=== PATIENT | female | born 1955 | race African-American/Black ===

== ENCOUNTER → 2016-08-11 | Outpatient (CLI) | payer OTHER ==
[~2016-08-11] MED LIST: ALBUTEROL17 GM INH; BREO ELLIPTA 21 EACH; CALAN PO; DESYREL100 MG PO; ESCITALOPRAM OX10 MG PO; FLEXERIL10 MG PO; HYDRALAZINE HC100 MG PO; MAG-OXIDE400 MG PO; NEURONTIN300 MG PO; NORCO 7.5-3251 EACH PO; NORVASC10 MG PO; OMEPRAZOLE20 M1 PO
--- NOTE | ~2016-08-11 | US6 ---
[facility] A Service of [facility] & [facility] RADIOLOGY TEXT RESULTS PATIENT: OCTAVIO STAHL LOCATION: [facility] : 53 UNIT #: [id number] AGE: [address]: AISSATOU SALEH APRN SEX: F ORDER DR: [id number] [facility] [address] [place], [place] [address] [id number] O MR#: [id number] Acc #: [id number] NAME: OCTAVIO STAHL : 1955 SEX: F STUDY DATE/TIME: 08/11/2016 11:34 UNIT: [facility] ROOM: STUDY DESCRIPTION: US Abdominal Limited Attending Physician: Aissatou Saleh A.P.R.N. Referring Physician: Aissatou Saleh A.P.R.N. Ordering Physician: Aissatou Saleh A.P.R.N. Primary Care Physician: Primary Care Physician No MEDICAL IMAGING REPORT This report is preliminary unless electronic signature is present EXAM Right upper quadrant ultrasound, 08/11 HISTORY Hepatitis C diagnosed about 1 month ago. FINDINGS Sonographic evaluation is performed of the right upper quadrant in multiple planes. No comparison. There is either a hypoechoic nodule within the head of the pancreas or there is periportal adenopathy. Lesion measures about 2.1 x 1.1 x 1.8 cm. Follow-up with a contrast enhanced CT is recommended. No focal liver masses are seen. The main portal vein is patent by Doppler. The right kidney is morphologically normal and nonobstructed. There is a cyst in the right lobe of the liver. This measures about 1.4 cm. It is also present on a chest CTA from 03/18/2014. No gallstones are identified. There is no gallbladder wall thickening. The common duct is normal at 4.0 mm internal diameter. There is no free fluid. IMPRESSION 1. Mass in the head of the pancreas versus an enlarged periportal lymph node. Follow-up with a contrast enhanced CT is recommended. 2. There is a small hepatic cyst. Liver otherwise is grossly normal. 3. Normal gallbladder. No biliary obstruction. Dictated by... Frank Lamas Jr. MAmanda. THIS IS AN ELECTRONICALLY VERIFIED REPORT Frank Lamas Jr., M.D. at 08/11/2016 5:01 PM GEORGE/tobi [facility]. [facility] A Service of [facility] & [facility] RADIOLOGY TEXT RESULTS PATIENT: OCTAVIO STAHL LOCATION: [facility] #: [id number] : 53 UNIT #: [id number] AGE: [address]: AISSATOU SALEH APRN SEX: F ORDER DR: TD: 08/11/2016 15:11 JOB #: [id number] MEDICAL IMAGING REPORT Page 1 of 1 COPY
[2016-08-11 11:19] LABS: HEMOGLOBIN 10.9 gm/dL (12.0-16.0); MEAN CELL VOLUME 79.2 FL (83-96); MEAN CORPUSCULAR HEMOGLOBIN 24.7 PG (28-34); MEAN CORPUSCULAR HGB CONC 31.2 g/dL (30-36); MEAN PLATELET VOLUME 9.4 FL (6.5-11.5); RED BLOOD COUNT 4.42 X10e (3.90-5.30); RED CELL DISTRIBUTION WIDTH 15.2 % (11.0-15.5); WHITE BLOOD COUNT 11.4 X10e3 (4.0-10.5)
[2016-08-11 11:44] LABS: AMPHETAMINE NEG (NEG); BARBITURATES NEG (NEG); BENZODIAZEPINES NEG (NEG); COCAINE NEG (NEG); MARIJUANA NEG (NEG); OPIATES POS (NEG); TRICYCLIC ANTIDEPRESSANTS POS (NEG); U METHADONE NEG (NEG)
[2016-08-11 11:47] LABS: ALBUMIN SERUM 3.6 g/dL (3.5-5.0); BILIRUBIN,TOTAL 0.1 mg/dL (0.2-2.0); BUN/CREATININE RATIO 22.5; CALCIUM SERUM 8.7 mg/dL (8.4-10.2); CREATININE SERUM 1.2 mg/dL (0.6-1.4); GLOM FILT RATE Estimated 56.1 mL/min (>60); PROTEIN TOTAL SERUM 7.5 g/dL (6.0-8.3)
[2016-08-16 10:32] LABS: HA AB IGM (HEPPAN) Nonreactive (()); HB CORE AB IGM (HEPPAN) Nonreactive (Nonreactive); HB S AG (HEPPAN) Nonreactive (Nonreactive); HEP C AB (HEPPAN) Reactive (Nonreactive)
== END | disposition home or self-care (01) ==
LOC: CLAB 10:10 → CGUS 10:10
PROVIDERS: Nurse Practitioner Family
DX: B19.20 Unspecified viral hepatitis C without hepatic coma (principal); K76.89 Other specified diseases of liver
CPT/HCPCS: 36415; 76705; 80053; 80074; 80307; 82172; 82247; 82977; 83010; 83883; 84460; 85027; 87522; 87902

== ENCOUNTER → 2016-10-08 | Day surgery (SDC) | payer OTHER ==
--- NOTE | ~2016-10-08 | OR ---
Unit #: [id number] #: [id number] Patient: OCTAVIO STAHL [id number] [address] [address] [id number] O MR#: [id number] NAME: OCTAVOI STAHL ROOM: Date of Procedure: 10/08/2016 Admission Date: 10/08/2016 Surgeon: Carroll Nunez M.D. : 1955 Attending Physician: Carroll Nunez M.D. Primary Care Physician: Eri Corado M.D. OPERATIVE REPORT PROCEDURE PERFORMED Colonoscopy with snare polypectomy. INDICATIONS FOR PROCEDURE A 61-year-old female with average risk for colorectal cancer. MEDICATIONS Monitored anesthesia. POSTOPERATIVE FINDINGS 1. Colonoscopy completed to cecum. Multiples polyps were seen, 5 polyps in ascending colon, 4 to 6 mm each, snared and sent for histopathology. 2. Polyp, traverse colon, 1 cm, snared and sent for histopathology. 3. Polyp, traverse colon, 5 mm, snared and sent for histopathology. PLAN Repeat colonoscopy in 3 years. DESCRIPTION OF PROCEDURE The patient was explained of the procedure, risks, and benefits along with risks and benefits of anesthesia. She was brought to the endoscopy room. Propofol anesthesia was given. Rectal exam was done, which was normal. Colonoscope was lubricated, passed up the rectum, advanced under direct vision all the way to the cecum. Cecum was identified by ileocecal valve and appendiceal orifice. Polyps have been described above. I retroflexed in the rectum, small hemorrhoids seen. The scope was gently pulled out. She tolerated it well. No major complications seen. Dictated by... Savi Palacios/jorje TD: 10/09/2016 01:25 JOB #: [id number] Unit #: [id number] #: [id number] Patient: OCTAVIO STAHL OPERATIVE REPORT Page 1 of 1 X Carroll Nunez MD PROCEDURE OPERATIVE NOTE
== END | disposition home or self-care (01) ==
LOC: COPS 08:37
DX: Z12.11 Encounter for screening for malignant neoplasm of colon (principal); D12.2 Benign neoplasm of ascending colon; D12.3 Benign neoplasm of transverse colon; K64.9 Unspecified hemorrhoids; F41.9 Anxiety disorder, unspecified; K21.9 Gastro-esophageal reflux disease without esophagitis; M19.90 Unspecified osteoarthritis, unspecified site; I10 Essential (primary) hypertension; J43.9 Emphysema, unspecified; F17.210 Nicotine dependence, cigarettes, uncomplicated; Z98.890 Other specified postprocedural states; Z90.710 Acquired absence of both cervix and uterus; Z86.73 Personal history of transient ischemic attack (TIA), and cerebral infarction without residual deficits; Z79.899 Other long term (current) drug therapy
CPT/HCPCS: 88305